=== PATIENT | female | born 1970 | race Caucasian/White ===

== ENCOUNTER 2021-08-16 18:01 | Emergency (ER) | payer MEDICAID ==
[~2021-08-16] VITALS: Ht 160 cm; Wt 105.7 kg
[2021-08-16 18:36] VITALS: BP 148/83
[2021-08-16 19:18] LABS: BASOPHILS % (AUTO) 0.4 % (0.0-2.0); EOSINOPHILS % (AUTO) 0.5 % (0.0-4.0); HEMATOCRIT 39.6 % (36-48); HEMOGLOBIN 13.5 g/dL (12.0-16.0); LYMPHOCYTES # (AUTO) 2.2 K/uL (2.5-16.5); LYMPHOCYTES % (AUTO) 25.8 % (20.5-51.1); MEAN CORPUSCULAR HEMOGLOBIN 30 pg (27-31); MEAN CORPUSCULAR HGB CONC 34 g/dL (33-37); MEAN CORPUSCULAR VOLUME 88.3 fL (80-94); MONOCYTES # (AUTO) 0.6 K/uL (0.8-1.0); MONOCYTES % (AUTO) 6.4 % (1.7-9.3); NEUTROPHILS # (AUTO) 5.7 K/uL (1.8-7.7); NEUTROPHILS % (AUTO) 66.9 % (42.2-75.2); PLATELET COUNT (AUTO) 263 K/uL (140-450); RED BLOOD CELL COUNT(AUTO) 4.48 MIL/uL (4.20-5.40); RED CELL DISTRIBUTION WIDTH 14.3 % (11.6-13.7); WHITE BLOOD COUNT (AUTO) 8.6 K/uL (4.8-10.8)
[2021-08-16 19:32] LABS: ALBUMIN 3.4 g/dL (3.4-5.0); ANION GAP 10.7 (8-16); CARBON DIOXIDE 32.2 mmol/L (21-32); CREATININE 0.7 mg/dL (0.6-1.3); POTASSIUM 3.9 mmol/L (3.5-5.1); TOTAL BILIRUBIN 0.4 mg/dL (0.0-1.0)
[2021-08-16] MEDS ORDERED: KETOROLAC 60 MG/2 ML VIAL IM ONE (19:45)
--- NOTE | 2021-08-16 20:05 | NUR ---
50 YO/F BIB SELF W C/O RUQ ABDOMINAL PAIN RADIATING TO R BACK 04/19, PRESSURE LIKE INTERMITTENT X1 WEEK. PT DENIES FEVERS, CHILLS, N/V/D. PT LAYING IN BED LOCKED IN LOWEST POSITION W X1 SIDERAIL UP. BREATHING EVEN AND UNLABORED. NAD NITED, WILL CONTINUE TO MONITOR. PMH:DIABETES, ANEMIA NKA
[2021-08-16 20:15] VITALS: BP 127/91
--- NOTE | 2021-08-16 20:15 | NUR ---
Patient discharged with v/s stable. Written and verbal after care instructions given and explained. Patient verbalized understanding. Ambulatory with steady gait. All questions addressed prior to discharge. Advised to follow up with PMD.
== END 2021-08-16 20:15 | disposition home or self-care (01) ==
LOC: MED 18:01
DX: R10.11 Right upper quadrant pain (principal); E11.9 Type 2 diabetes mellitus without complications; Z98.890 Other specified postprocedural states
CPT/HCPCS: 36415; 80053; 83690; 85025; 96372; 99283; J1885